=== PATIENT | male | born 1975 | race Caucasian/White ===

== ENCOUNTER 2016-07-19 14:17 | Observation (INO) | payer OTHER ==
--- NOTE | 2016-07-19 15:54 | C.PDOC ---
History Of Present Illness Patient is a 40 year old male who presents to the ER with a complaint of a syncopal episode ar 12:30. Patient reports she went to use the bathroom and states "all of a sudden I passed out". Patient received a nasal injury as a result of the syncopal episode. Patient is currently asymptomatic, denies recent illness, fever, chest pain, palpation, and headache. SYNCOPE @ 1230. PS WENT TO USE BATHROOM, "ALL OF A SUDDEN I PASSED OUT". +NASAL INJURY. CURRENTLY ASYMPT. DENIES RECENT ILLNESS, FEVER, CP, PALP, BRADLEY. EXAM HEENT NASAL CONTUSION, MIDLINE NO EPISTAXIS NEURO INTACT LUNGS NEG CV RRR SKIN +0.5 CM LAC MID NOSE, WELL APPROX. NO ACTIVE BLEED Time Seen by Provider: 07/19/16 15:42 Chief Complaint (Nursing): Syncope History Per: Patient History/Exam Limitations: no limitations Onset/Duration Of Symptoms: Hrs (at 12:30) Current Symptoms Are (Timing): Still Present Activity At Onset Of Symptoms: Other (Went to use the bathroom) Past Medical History Reviewed: Historical Data, Nursing Documentation, Vital Signs Vital Signs: Last Vital Signs Temp 98.5 F 07/19/16 18:51 Pulse 87 07/19/16 18:04 Resp 20 07/19/16 18:04 BP 112/70 07/19/16 18:04 Pulse Ox 95 07/19/16 18:54 - Medical History PMH: No Chronic Diseases Surgical History: No Surg Hx Family History: States: Unknown Family Hx - Social History Hx Alcohol Use: Yes Hx Substance Use: No - Immunization History Hx Tetanus Toxoid Vaccination: No Hx Influenza Vaccination: No Hx Pneumococcal Vaccination: No Review Of Systems Except As Marked, All Systems Reviewed And Found Negative. Constitutional: Negative for: Fever Cardiovascular: Negative for: Chest Pain, Palpitations Neurological: Negative for: Headache Physical Exam - Physical Exam Appears: Well, Non-toxic, No Acute Distress Skin: Normal Color, Warm, Dry, Other (0.5 cm midline laceration, well approximated, no active bleed.) Head: Atraumatic, Normacephalic Eye(s): bilateral: Normal Inspection, PERRL, EOMI Ear(s): Bilateral: Normal Nose: No Epistaxis, Other (Midline nasal contusion) Oral Mucosa: Moist Chest: Symmetrical, No Tenderness Cardiovascular: Rhythm Regular, No Murmur Respiratory: Other (No acute respiratory distress. Patient speaking in complete sentences.) Gastrointestinal/Abdominal: Soft, No Tenderness Neurological/Psych: Oriented x3, Normal Speech, Normal Cognition, Normal Cranial Nerves, Normal Motor, Normal Sensation ED Course And Treatment - Laboratory Results Result Diagrams: 07/19/16 16:38 07/19/16 16:38 ECG: Interpreted By Me ECG Rhythm: Sinus Tachycardia ECG Interpretation: Abnormal Rate From EC O2 Sat by Pulse Oximetry: 95 (Room air) Pulse Ox Interpretation: Normal - Radiology CXR: Interpreted by Me CXR Interpretation: Yes: No Acute Disease Progress Note: EKG and blood work ordered. IV fluids and tetanus IM administered. Laceration - Laceration Repair No standard instances Wound Length (In cm): 0.5 Description Of Wound: Linear, Clean Wound Cleansed With: Sterile Saline Wound Closure: Skin Glue Progress - Data Reviewed Data Reviewed: Lab, Diagnostic imaging, EKG, Old records ED OBSERVATION Discharge: Yes Date of observation admission: 07/19/16 Time of observation admission: 15:00 - Observation admission statement Patient is being placed in observation because:: SYNCOPE; NASAL INJURY - Goals of Observation Goals of observation are:: MED CLEAR, SX IMPROVE - Progress Note Progress Note: 07/19/16 17:36 EXAM UNCH FROM PRIOR. VSS. NO RECUR SX SINCE PRIOR EVAL. PENDING CTA 07/19/16 18:00 SP IV CONTRAST: +NEW ONSET B/L FACIAL HIVES. NO SOB, SWELLING. PT DENIES PRIOR HO ALLERGIES. VSS NARD 07/19/16 18:44 HIVES IMPROVED COMPARED TO PRIOR. VSS. ASYMPT. PT ADVISED OVERNIGHT ADMISSION FOR SYNCOPE, ANEMIA UNK CAUSE, ALLERGIC RXN. ADVISED OF RISKS BENEFITS, INCLUDING FURTHER EVALUATION OF CONDITION, DETERIORATION DISABILITY AND . AO3, EXPRESSES VERBAL UNDERSTANDING OF SAME. FAMILY @ BEDSIDE. AMA Disposition Counseled Patient/Family Regarding: Studies Performed, Diagnosis, Need For Followup - Disposition Disposition: AGAINST MEDICAL ADVICE Disposition Time: 18:45 Condition: STABLE - Clinical Impression Clinical Impression: Syncope, Laceration of nose, Allergic reaction to contrast dye, Anemia - Scribe Statement The provider has reviewed the documentation as recorded by the Scribe Yoan Aranda All medical record entries made by the Scribe were at my direction and personally dictated by me. I have reviewed the chart and agree that the record accurately reflects my personal performance of the history, physical exam, medical decision making, and the department course for this patient. I have also personally directed, reviewed, and agree with the discharge instructions and disposition.
[2016-07-19] MEDS ORDERED: Sodium Chloride 0.9% 1,000 ML IV ONE (15:55)
[2016-07-19] MEDS ORDERED: Tetanus/Diphtheria Toxoids 0.5 ml Syringe IM ONE ×2 (15:56→17:15)
--- NOTE | 2016-07-19 16:23 | CT ---
PROCEDURE: CT HEAD WITHOUT CONTRAST. HISTORY: SYNCOPE, NASAL INJURY COMPARISON: None available. TECHNIQUE: Axial computed tomography images were obtained through the head/brain without intravenous contrast. Radiation dose: Total exam DLP = 819.97 mGy-cm. This CT exam was performed using one or more of the following dose reduction techniques: Automated exposure control, adjustment of the mA and/or kV according to patient size, and/or use of iterative reconstruction technique. FINDINGS: HEMORRHAGE: No intracranial hemorrhage. BRAIN: No mass effect or edema. Pwju-iq-fqekbqii atrophy is noted. Possible [id number] chronic microvascular white matter ischemic disease. VENTRICLES: Unremarkable. No hydrocephalus. CALVARIUM: Unremarkable. PARANASAL SINUSES: Unremarkable as visualized. No significant inflammatory changes. MASTOID AIR CELLS: Unremarkable as visualized. No inflammatory changes. OTHER FINDINGS: None. IMPRESSION: No evidence of acute intracranial hemorrhage intracranial collection mass effect or midline shift. Ibhh-dp-[id number] atrophy for the patient's age.
--- NOTE | 2016-07-19 16:34 | RAD ---
HISTORY: chest pain COMPARISON: No prior. TECHNIQUE: Chest PA and lateral FINDINGS: LUNGS: The lungs are clear. PLEURA: No significant pleural effusion identified. No pneumothorax apparent. CARDIOVASCULAR: Normal. OSSEOUS STRUCTURES: No significant abnormalities. VISUALIZED UPPER ABDOMEN: Normal. OTHER FINDINGS: None. IMPRESSION: No active pulmonary disease.
[2016-07-19 16:51] LABS: CHLORIDE 101 mmol/L (98-107); POTASSIUM 3.4 mmol/L (3.6-5.2); SODIUM 141 mmol/L (132-148)
[2016-07-19 16:53] LABS: GFR AFRICAN-AMERICAN > 60
[2016-07-19 16:54] LABS: ALB/GLOB RATIO 1.1 (1.0-2.1); ALKALINE PHOSPHATASE 148 U/L (38-126); ALT/SGPT 80 U/L (21-72); AST/SGOT 265 U/L (17-59); BILIRUBIN,TOTAL 1.7 mg/dL (0.2-1.3); BLOOD UREA NITROGEN 6 mg/dL (9-20); CARBON DIOXIDE 23 mmol/L (22-30); GLUCOSE,RANDOM 89 mg/dL (75-110); TOTAL PROTEIN 8.1 g/dL (6.3-8.3)
[2016-07-19 16:55] LABS: BASO # 0.1 K/uL (0.0-0.2); BASO % 1.2 % (0.0-2.0); CALCIUM 8.2 mg/dl (8.6-10.4); EOS # 0.1 K/uL (0.0-0.7); EOS % 1.8 % (0.0-4.0); HEMATOCRIT 27.2 % (35.0-51.0); LYMPH # 2.4 K/uL (1.0-4.3); LYMPH % 43.1 % (20.0-40.0); MEAN CELL VOLUME 67.7 fL (80.0-94.0); MEAN CORPUSCULAR HEMOGLOBIN 19.8 pg (27.0-31.0); MEAN CORPUSCULAR HGB CONC 29.2 g/dL (33.0-37.0); MEAN PLATELET VOLUME 8.9 fL (7.2-11.7); MONO # 0.4 K/uL (0.0-0.8); MONO % 7.9 % (0.0-10.0); NRBC % 0.2 % (0.0-2.0); RED CELL DISTRIBUTION WIDTH 21.9 % (11.5-14.5); WHITE BLOOD COUNT 5.6 K/uL (4.8-10.8)
[2016-07-19] MEDS ORDERED: Sodium Chloride 0.9% 1,000 ML ONE (17:15)
[2016-07-19] MEDS ORDERED: Iodixanol 320 MG/ML 100 ML BOTTLE IV ONE (17:36)
[2016-07-19] MEDS ORDERED: MethylPREDNISolone 40 mg Vial IVP STA (17:59)
[2016-07-19] MEDS ORDERED: DiphenhydrAMINE 50 mg/ml Inj IVP STA (17:59)
[2016-07-19] MEDS ORDERED: DiphenhydrAMINE 50 mg/ml Inj ONE (18:08)
[2016-07-19] MEDS ORDERED: MethylPREDNISolone 40 mg Vial ONE (18:08)
[2016-07-19 18:21] VITALS: BP 112/70; PULSE 87; RESP 20
--- NOTE | 2016-07-19 18:32 | CT ---
CT chest with IV contrast Indication: Syncope Technique: Contiguous axial images were obtained through the chest with intravenous contrast enhancement. Sagittal and coronal reconstructions were generated and reviewed. This CT exam was performed using 1 or more of the falling dose reduction techniques: Automated exposure control, adjustment of the MAA and/or kV according to patient size, and/or use of iterative reconstruction technique. IV Contrast: 100 mL Visipaque Radiation dose (DLP): 525.71 MGy-cm. Comparison: Chest x-ray performed 07/19/16 Findings: Visualized portions of the inferior thyroid gland appear unremarkable. The mediastinal and hilar vascular structures appear within normal limits. The heart appears within normal limits of size. Suboptimal opacification of the pulmonary arteries. No large central or segmental pulmonary embolus evident. No focal consolidation. No pleural effusion. No pneumothorax. No suspicious pulmonary nodules measuring greater than 5 mm. Small hiatal hernia/distal esophageal wall thickening. Limited visualization of the upper abdomen reveals fullness of the pancreatic tail of unclear significance; recommend dedicated cross-sectional imaging to exclude possibility of underlying neoplasm. Gallbladder wall thickening/pericholecystic edema. Hypoattenuation of the liver compatible with hepatic steatosis. Nodular hepatic contour. Sub cm mesenteric lymph nodes, nonspecific. No acute osseous abnormality is detected. Impression: Suboptimal opacification of the pulmonary arteries, however allowing for this limitation no large central or segmental pulmonary embolus evident. Limited visualization of the upper abdomen reveals fullness of the pancreatic tail of unclear significance; while this may reflect normal pancreatic tissue, recommend dedicated cross-sectional imaging to exclude possibility of underlying neoplasm. Gallbladder wall thickening/pericholecystic edema. Suggest right upper quadrant ultrasound. Hepatic steatosis. Nodular hepatic contour. Correlate clinically. Additional incidental findings as above. Please note that this patient experienced a delayed reaction (hives) to this examination with IV contrast. Dr. Hedrick was notified, and the patient was treated accordingly.
[2016-07-19 18:46] VITALS: O2SAT 95
[2016-07-19 18:56] VITALS: TEMP 98.5
--- NOTE | 2016-07-22 08:31 | CARD ---
APPROVED REPORT EKG Measurement Heart [id number] <Conclusion> Sinus tachycardia Voltage criteria for left ventricular hypertrophy Abnormal ECG
== END 2016-07-19 18:45 | disposition home or self-care (01) ==
LOC: C.ER 14:17 → C.9OBSV 15:54
PROVIDERS: ADMIT Emergency Medicine; ATTEND Emergency Medicine
DX: R55 Syncope and collapse (principal); S01.21XA Laceration without foreign body of nose, initial encounter; W19.XXXA Unspecified fall, initial encounter; D64.9 Anemia, unspecified; T50.8X5A Adverse effect of diagnostic agents, initial encounter
CPT/HCPCS: 36415; 70450; 71020; 71275; 80053; 84484; 85025; 85378; 90471; 90714; 96360; 96374; G0378; J1200; J2920; J7040; Q9967